=== PATIENT | female | born 1955 | race Caucasian/White ===

== ENCOUNTER 2018-04-10 14:05 | Outpatient (CLI) | payer OTHER | END 2018-04-10 14:06 | disposition home or self-care (01) | LOC: BICMAMMO 14:05 | PROVIDERS: ATTEND Obstetrics & Gynecology | DX: Z12.31 Encounter for screening mammogram for malignant neoplasm of breast (principal); Z13.820 Encounter for screening for osteoporosis; M85.89 Other specified disorders of bone density and structure, multiple sites | CPT/HCPCS: 77063; 77067; 77080 ==

== ENCOUNTER 2018-04-17 09:46 | Outpatient (CLI) | payer OTHER ==
--- NOTE | 2018-04-17 13:35 | ULT ---
LIMITED ULTRASOUND LEFT BREAST: DATE: 04/17/18. HISTORY: Area of architectural distortion seen within the central posterior depth of the left breast which was central to the nipple. FINDINGS: Limited sonographic evaluation of the left breast from the 11 o'clock to 1, at the 5 o'clock to 6 o'c lock positions as well as in the retroareolar region were performed. No solid or cystic mass is seen in the left breast. The area of previously seen architectural distortion was less conspicuous on th e additional mammographic views and the areas thought to most likely be related to superimposition of breast parenchyma. However, short interval followup is recommended. IMPRESSION: BI-RADS category 3, probably benign findings. Short 6-month followup unilateral left mammogram is re commended for further evaluation. POS: OFF
== END 2018-04-17 09:47 | disposition home or self-care (01) ==
LOC: BICMAMMO 09:46
PROVIDERS: ATTEND Obstetrics & Gynecology
DX: N63.20 Unspecified lump in the left breast, unspecified quadrant (principal)
CPT/HCPCS: G0279

== ENCOUNTER 2018-10-19 08:05 | Outpatient (CLI) | payer OTHER ==
--- NOTE | 2018-10-21 18:22 | MMO ---
Left Breast MAMMO Unilat Diag [facility] LT+ANGELINA. CLINICAL HISTORY: Patient is 63 years old and is seen for follow-up at short-interval from prior study. The patient has no family history of breast cancer. The patient has no personal history of cancer. VIEWS: The views performed were: left craniocaudal with tomosynthesis; left mediolateral oblique with tomosynthesis; and left mediolateral. FILMS COMPARED: The present examination has been compared to prior imaging studies performed at [facility] on 07/02/2005, 07/03/2005, 04/26/2013, 05/09/2014, 03/31/2015, 04/10/2018 and 04/17/2018, and at [facility] on 07/03/2004. MAMMOGRAM FINDINGS: The breast is heterogeneously dense, which could obscure a lesion on mammography. There are stable benign appearing calcifications seen in the left breast. There are no suspicious masses, calcifications or areas of architectural distortion. IMPRESSION: STABLE CALCIFICATIONS IN THE LEFT BREAST ARE PROBABLY BENIGN. FOLLOW-UP BILATERAL SCREENING MAMMOGRAM IN 6 MONTHS IS RECOMMENDED. 3BTHE RESULTS OF THIS EXAM WERE SENT TO THE PATIENT.0B ACR BI-RADS Category 3 - Probably benign finding - short interval follow-up suggested. [facility] will notify the patient of the need for additional imaging services. MAMMOGRAPHY NOTE: 1. A negative mammogram report should not delay a biopsy if a dominant of clinically suspicious mass is present. 2. Approximately 10% to 15% of breast cancers are not detected by mammography. 3. Adenosis and dense breasts may obscure an underlying neoplasm.
== END 2018-10-19 08:06 | disposition home or self-care (01) ==
LOC: BICMAMMO 08:05
PROVIDERS: ATTEND Obstetrics & Gynecology
DX: R92.8 Other abnormal and inconclusive findings on diagnostic imaging of breast (principal); R92.1 Mammographic calcification found on diagnostic imaging of breast
CPT/HCPCS: G0279

== ENCOUNTER 2023-03-11 13:20 | Outpatient (CLI) | payer MEDICARE, OTHER | END 2023-03-11 13:21 | disposition home or self-care (01) | LOC: BICMAMMO 13:20 | PROVIDERS: ATTEND Internal Medicine | DX: Z12.31 Encounter for screening mammogram for malignant neoplasm of breast (principal) | CPT/HCPCS: 77063; 77067 ==